=== PATIENT | female | born 1970 | race Caucasian/White ===

== ENCOUNTER 2019-08-20 11:30 | Day surgery (SDC) | payer OTHER ==
[~2019-08-20 11:30] MED LIST: LOSARTAN-HCTZ1 EAC1 PO
== END 2019-08-20 18:52 | disposition home or self-care (01) ==
LOC: CIR.AMB 11:30
DX: M77.11 Lateral epicondylitis, right elbow (principal)

== ENCOUNTER 2021-04-24 08:30 | Outpatient (CLI) | payer OTHER | END 2021-04-24 08:38 | disposition home or self-care (01) | LOC: RAD 08:30 | PROVIDERS: ATTEND Obstetrics & Gynecology | DX: I10 Essential (primary) hypertension (principal); N70.11 Chronic salpingitis; N92.0 Excessive and frequent menstruation with regular cycle; Z01.810 Encounter for preprocedural cardiovascular examination; Z01.811 Encounter for preprocedural respiratory examination ==